=== PATIENT | female | born 1975 | race African-American/Black ===

== ENCOUNTER 2023-05-26 18:24 | Emergency (ER) | payer OTHER, SELFPAY ==
[2023-05-26] MEDS ORDERED: Ketorolac Tromethamine 30 MG/ML VIAL ONE (18:40)
[2023-05-26] MEDS ORDERED: HYDROcodone/Acetaminophen 10/325 mg Tablet ONE (18:40)
== END 2023-05-26 19:25 | disposition home or self-care (01) ==
LOC: CSHERS 18:24
DX: S29.011A Strain of muscle and tendon of front wall of thorax, initial encounter (principal); V89.2XXA Person injured in unspecified motor-vehicle accident, traffic, initial encounter
CPT/HCPCS: 71045; 96372; J1885